=== PATIENT | female | born 1945 | race Caucasian/White ===

== ENCOUNTER 2021-04-20 05:03 | Day surgery (SDC) | payer OTHER ==
[2021-04-19 11:18] VITALS: BMI 23.6
[2021-04-20 11:41] VITALS: TEMP 97.7
[2021-04-20 12:30] VITALS: BP 118/72; PULSE 72
== END 2021-04-20 13:30 | disposition home or self-care (01) ==
LOC: JASU-ENDO 05:03
PROVIDERS: ATTEND Internal Medicine Gastroenterology
PROC: 0DBN8ZX Excision of Sigmoid Colon, Via Natural or Artificial Opening Endoscopic, Diagnostic (ICD-10-PCS; principal; 2021-04-20 10:45)
DX: Z12.11 Encounter for screening for malignant neoplasm of colon (principal); D12.7 Benign neoplasm of rectosigmoid junction; K63.89 Other specified diseases of intestine; Z86.010 Personal history of colon polyps; Z80.0 Family history of malignant neoplasm of digestive organs
CPT/HCPCS: 88305-TC